=== PATIENT | male | born 1945 | race Caucasian/White ===

== ENCOUNTER 2018-07-05 15:18 | Emergency (ER) | payer BC ==
[~2018-07-05 15:18] MED LIST: ATORVASTATIN; ATORVASTATIN CA40 M1; GABAPENTIN; HYDROCHLOROTHIAZIDE; IRON 100 PLUS1 TAB; LACTULOSE; LISINOPRIL2.5 MG; METOPROLOL; METOPROLOL SUCC25 M1; MOT800 PO; TOPROL XL25 MG; TRAMADOL
[2018-07-05 17:57] VITALS: BP 140/81
== END 2018-07-05 17:57 | disposition home or self-care (01) ==
LOC: ED 15:18
DX: S05.02XA Injury of conjunctiva and corneal abrasion without foreign body, left eye, initial encounter (principal); I11.0 Hypertensive heart disease with heart failure; I50.9 Heart failure, unspecified; Z86.2 Personal history of diseases of the blood and blood-forming organs and certain disorders involving the immune mechanism; E78.00 Pure hypercholesterolemia, unspecified; Z86.73 Personal history of transient ischemic attack (TIA), and cerebral infarction without residual deficits; X58.XXXA Exposure to other specified factors, initial encounter; Y93.89 Activity, other specified; Y92.89 Other specified places as the place of occurrence of the external cause; Y99.8 Other external cause status

== ENCOUNTER 2019-03-16 08:51 | Emergency (ER) | payer BC ==
[~2019-03-16] VITALS: Ht 182.9 cm; Wt 68.0 kg
[2019-03-16 09:28] LABS: BASOPHIL % 0.4 % (0-2)
[2019-03-16 09:29] LABS: PLATELET COUNT 118 x10^3mcL (130-400); RED CELL DISTRIBUTION WIDTH 16.9 % (11.5-14.5)
[2019-03-16 09:52] LABS: CARBON DIOXIDE 24.4 mmol/L (21-32); CHLORIDE SERUM 110 mmol/L (98-107); CREATININE SERUM 0.9 mg/dL (0.7-1.3); GLUCOSE SERUM 71 mg/dL (74-106); POTASSIUM SERUM 3.3 mmol/L (3.5-5.1); SODIUM SERUM 149 mmol/L (136-145)
[2019-03-16 09:56] LABS: ALKALINE PHOSPHATASE 102 U/L (46-116); ALT/SGPT 23 U/L (16-63); AST/SGOT 29 U/L (15-37); BILIRUBIN TOTAL 0.73 mg/dL (0.20-1.00); MAGNESIUM 1.4 mg/dL (1.8-2.4); PHOSPHOROUS 2.7 mg/dL (2.5-4.9)
[2019-03-16 09:58] LABS: ALBUMIN 3.1 g/dL (3.4-5.0); CHOLESTEROL 132 mg/dL (<200); HDL CHOLESTEROL 93 mg/dL (40-60); TOTAL PROTEIN, SERUM 5.8 g/dL (6.4-8.2)
[2019-03-16 12:22] LABS: microscopic required? NO
[2019-03-16 12:26] LABS: urine erythrocyte NEGATIVE (NEGATIVE)
[2019-03-16 13:22] VITALS: BP 125/75
== END 2019-03-16 15:08 | disposition home or self-care (01) ==
LOC: ED 08:51
PROVIDERS: Emergency Medicine
DX: E16.2 Hypoglycemia, unspecified (principal); E87.6 Hypokalemia; E83.42 Hypomagnesemia; M25.562 Pain in left knee; M25.561 Pain in right knee; M54.5 Low back pain; R51 Headache; R53.1 Weakness; I11.0 Hypertensive heart disease with heart failure; I50.9 Heart failure, unspecified; E78.00 Pure hypercholesterolemia, unspecified; Z86.73 Personal history of transient ischemic attack (TIA), and cerebral infarction without residual deficits; Z86.2 Personal history of diseases of the blood and blood-forming organs and certain disorders involving the immune mechanism; Z88.8 Allergy status to other drugs, medicaments and biological substances; W18.39XA Other fall on same level, initial encounter; Y93.89 Activity, other specified; Y92.89 Other specified places as the place of occurrence of the external cause; Y99.8 Other external cause status
CPT/HCPCS: J3475; Q0092

== ENCOUNTER 2019-08-14 18:58 | Emergency (ER) | payer BC ==
[~2019-08-14] VITALS: Ht 172.7 cm; Wt 65.8 kg
[2019-08-14 19:18] VITALS: Ht 172.7 cm; Wt 65.8 kg
[2019-08-14 22:58] VITALS: BP 106/63
== END 2019-08-14 22:58 | disposition home or self-care (01) ==
LOC: ED 18:58
DX: S00.81XA Abrasion of other part of head, initial encounter (principal); S60.512A Abrasion of left hand, initial encounter; S60.511A Abrasion of right hand, initial encounter; I11.0 Hypertensive heart disease with heart failure; I50.9 Heart failure, unspecified; E78.00 Pure hypercholesterolemia, unspecified; Z88.8 Allergy status to other drugs, medicaments and biological substances; W18.30XA Fall on same level, unspecified, initial encounter; Y93.89 Activity, other specified; Y99.8 Other external cause status; Y92.89 Other specified places as the place of occurrence of the external cause